=== PATIENT | male | born 1995 | race Asian ===

== ENCOUNTER 2017-01-28 18:25 | Emergency (ER) | payer OTHER ==
[~2017-01-28] VITALS: Ht 162.6 cm; Wt 78.0 kg
[~2017-01-28 18:25] MED LIST: ALBU90AE13 INH; AMOX875T8 PO; CEFTRIAXONE250 MG IJ; DOXYCYCL HYC100 M1 PO; DOXYCYCLINE PO; LORA10TA3 PO; MEDROL DOSEPAK4 MG PO
[2017-01-28 18:54] VITALS: BP 109/70; TEMP 98.6
== END 2017-01-28 19:15 | disposition home or self-care (01) ==
LOC: ED 18:25
DX: R11.2 Nausea with vomiting, unspecified (principal); R19.7 Diarrhea, unspecified
CPT/HCPCS: 99281

== ENCOUNTER 2017-03-15 11:05 | Emergency (ER) | payer OTHER ==
[~2017-03-15] VITALS: Ht 165.1 cm; Wt 81.6 kg
[2017-03-15 11:40] VITALS: BP 162/84; TEMP 98.3
== END 2017-03-15 11:43 | disposition home or self-care (01) ==
LOC: ED 11:05
DX: K08.89 Other specified disorders of teeth and supporting structures (principal)
CPT/HCPCS: 99282

== ENCOUNTER 2017-04-30 08:49 | Emergency (ER) | payer OTHER ==
[~2017-04-30] VITALS: Ht 165.1 cm; Wt 81.6 kg
[2017-04-30 08:58] VITALS: BP 119/71; TEMP 97.8
== END 2017-04-30 09:25 | disposition home or self-care (01) ==
LOC: ED 08:49
DX: Z48.02 Encounter for removal of sutures (principal)

== ENCOUNTER 2017-05-14 13:23 | Emergency (ER) | payer OTHER ==
[~2017-05-14] VITALS: Ht 165.1 cm; Wt 81.6 kg
[2017-05-14 13:30] VITALS: BP 115/70; TEMP 97.7
== END 2017-05-14 15:08 | disposition home or self-care (01) ==
LOC: ED 13:23
DX: N48.89 Other specified disorders of penis (principal)
CPT/HCPCS: 81000; 99282

== ENCOUNTER 2017-05-20 09:39 | Emergency (ER) | payer OTHER ==
[~2017-05-20] VITALS: Ht 165.1 cm; Wt 81.6 kg
[2017-05-20 09:48] VITALS: BP 151/78; TEMP 98.3
== END 2017-05-20 10:00 | disposition home or self-care (01) ==
LOC: ED 09:39
DX: R30.0 Dysuria (principal)

== ENCOUNTER 2017-10-07 08:26 | Emergency (ER) | payer OTHER ==
[~2017-10-07] VITALS: Ht 165.1 cm; Wt 81.6 kg
[2017-10-07 08:40] VITALS: TEMP 98.6
[2017-10-07 09:36] LABS: PLATELET COUNT 202 K/uL (142-355)
[2017-10-07 09:50] LABS: POTASSIUM 2.9 mmol/L (3.6-5.2)
[2017-10-07 11:35] VITALS: BP 120/80
== END 2017-10-07 11:35 | disposition home or self-care (01) ==
LOC: ED 08:26
DX: K52.9 Noninfective gastroenteritis and colitis, unspecified (principal)
CPT/HCPCS: 36415; 74022; 80053; 82150; 83690; 83735; 85027; 96360; 96361; 99284; J2405

== ENCOUNTER 2018-10-11 07:28 | Emergency (ER) | payer OTHER ==
[~2018-10-11] VITALS: Ht 162.6 cm; Wt 75.3 kg
[2018-10-11 07:33] VITALS: TEMP 97.9
[2018-10-11 08:50] VITALS: BP 118/62
== END 2018-10-11 08:50 | disposition home or self-care (01) ==
LOC: ED 07:28
DX: N34.2 Other urethritis (principal)
CPT/HCPCS: 81000; 87086; 87088; 87490; 87590; 96372; 99283; J0696

== ENCOUNTER 2019-01-15 12:48 | Emergency (ER) | payer OTHER ==
[~2019-01-15] VITALS: Ht 162.6 cm; Wt 75.3 kg
[2019-01-15 13:00] VITALS: TEMP 99.1
[2019-01-15 14:20] VITALS: BP 114/68
== END 2019-01-15 14:22 | disposition home or self-care (01) ==
LOC: ED 12:48
DX: L08.9 Local infection of the skin and subcutaneous tissue, unspecified (principal)
CPT/HCPCS: 87070; 87077; 87185; 87186; 87205; 96372; 99283; J0696

== ENCOUNTER 2019-02-21 09:41 | Emergency (ER) | payer OTHER ==
[~2019-02-21] VITALS: Ht 162.6 cm; Wt 79.8 kg
[2019-02-21 10:01] VITALS: TEMP 99.1
[2019-02-21 12:06] VITALS: BP 114/68
== END 2019-02-21 12:07 | disposition home or self-care (01) ==
LOC: ED 09:41
DX: J06.9 Acute upper respiratory infection, unspecified (principal); R05 Cough
CPT/HCPCS: 87502; 87651; 99283

== ENCOUNTER 2019-12-02 16:37 | Emergency (ER) | payer OTHER ==
[~2019-12-02] VITALS: Ht 160 cm; Wt 78.9 kg
[2019-12-02 19:18] LABS: POTASSIUM 3.9 mmol/L (3.6-5.2)
[2019-12-02 19:26] LABS: PLATELET COUNT 241 K/uL (142-355)
[2019-12-02 20:03] VITALS: BP 102/69; TEMP 98.9
== END 2019-12-02 20:03 | disposition home or self-care (01) ==
LOC: ED 16:37
PROVIDERS: Family Medicine
DX: N39.0 Urinary tract infection, site not specified (principal)
CPT/HCPCS: 36415; 80053; 81000; 85027; 87086; 87088; 96372; 99283; J0696

== ENCOUNTER 2020-10-18 07:01 | Emergency (ER) | payer OTHER ==
[2020-10-31 07:03] LABS: PLATELET COUNT 264 K/uL (142-355)
== END 2020-10-18 12:00 | disposition home or self-care (01) ==
LOC: ED 07:01
PROVIDERS: Hospitalist
DX: R10.13 Epigastric pain (principal); K85.80 Other acute pancreatitis without necrosis or infection; Z87.898 Personal history of other specified conditions; B96.81 Helicobacter pylori [H. pylori] as the cause of diseases classified elsewhere
CPT/HCPCS: 36415; 80053; 80307; 80320; 81000; 82150; 83690; 85027; 86318; 96360; 96361; 96375; 99284; Q9963

== ENCOUNTER 2020-11-18 12:27 | Emergency (ER) | payer OTHER ==
[~2020-11-18] VITALS: Ht 162.6 cm; Wt 80.7 kg
[2020-11-18 12:30] VITALS: TEMP 98
[2020-11-18 14:40] VITALS: BP 112/68
== END 2020-11-18 14:40 | disposition home or self-care (01) ==
LOC: ED 12:27
DX: M54.6 Pain in thoracic spine (principal); D17.1 Benign lipomatous neoplasm of skin and subcutaneous tissue of trunk
CPT/HCPCS: 96372; 99283; J1885

== ENCOUNTER 2020-12-17 11:08 | Emergency (ER) | payer OTHER ==
[~2020-12-17] VITALS: Ht 162.6 cm; Wt 80.7 kg
[2020-12-17 13:21] LABS: PLATELET COUNT 293 K/uL (142-355)
[2020-12-17 13:28] LABS: POTASSIUM 3.8 mmol/L (3.6-5.2)
[2020-12-17 13:45] VITALS: BP 103/60
== END 2020-12-17 13:45 | disposition home or self-care (01) ==
LOC: ED 11:08
PROVIDERS: Hospitalist
DX: R07.89 Other chest pain (principal); J18.9 Pneumonia, unspecified organism; Z20.822 Contact with and (suspected) exposure to COVID-19; F17.210 Nicotine dependence, cigarettes, uncomplicated
CPT/HCPCS: 80048; 85027; 87635; 96372; 99283; J0696; J1885; U0003

== ENCOUNTER 2020-12-20 06:29 | Emergency (ER) | payer OTHER ==
[~2020-12-20] VITALS: Ht 162.6 cm; Wt 70.3 kg
[2020-12-20 06:33] VITALS: BP 127/80; TEMP 98
[2020-12-20 06:59] LABS: PLATELET COUNT 268 K/uL (142-355)
[2020-12-20 07:00] LABS: POTASSIUM 3.6 mmol/L (3.6-5.2)
== END 2020-12-20 10:56 | disposition home or self-care (01) ==
LOC: ED 06:29
PROVIDERS: Hospitalist
DX: R10.13 Epigastric pain (principal); K29.70 Gastritis, unspecified, without bleeding
CPT/HCPCS: 36415; 80053; 80320; 83690; 85027; 96360; 96375; 99284; J1885; J2405; Q9963

== ENCOUNTER 2020-12-31 13:11 | Emergency (ER) | payer OTHER ==
[~2020-12-31] VITALS: Ht 162.6 cm; Wt 77.1 kg
[2020-12-31 13:21] VITALS: TEMP 98.6
[2020-12-31 15:50] VITALS: BP 110/75
== END 2020-12-31 15:50 | disposition home or self-care (01) ==
LOC: ED 13:11
DX: J06.9 Acute upper respiratory infection, unspecified (principal); Z20.822 Contact with and (suspected) exposure to COVID-19
CPT/HCPCS: 87635; 99283; U0003

== ENCOUNTER 2021-02-08 23:29 | Emergency (ER) | payer OTHER ==
[~2021-02-08] VITALS: Ht 162.6 cm; Wt 77.1 kg
[2021-02-09 00:50] LABS: PLATELET COUNT 317 K/uL (142-355)
[2021-02-09 01:50] VITALS: BP 111/52; TEMP 98.5
== END 2021-02-09 01:50 | disposition home or self-care (01) ==
LOC: ED 23:29
PROVIDERS: Hospitalist
DX: N45.1 Epididymitis (principal)
CPT/HCPCS: 36415; 80053; 81000; 85027; 96372; 99283; J0696; J1885

== ENCOUNTER 2021-05-02 15:58 | Emergency (ER) | payer OTHER ==
[~2021-05-02] VITALS: Ht 162.6 cm; Wt 68.0 kg
[2021-05-02 17:35] VITALS: BP 112/71; TEMP 98
== END 2021-05-02 17:35 | disposition home or self-care (01) ==
LOC: ED 15:58
DX: A64 Unspecified sexually transmitted disease (principal)
CPT/HCPCS: 81000; 87088; 87490; 87590; 96372; 99283; J0696

== ENCOUNTER 2021-05-30 07:51 | Emergency (ER) | payer OTHER ==
[~2021-05-30] VITALS: Ht 162.6 cm; Wt 68.0 kg
[2021-05-30 08:00] VITALS: TEMP 98.9
[2021-05-30 08:35] LABS: PLATELET COUNT 259 K/uL (142-355)
[2021-05-30 08:42] LABS: POTASSIUM 3.9 mmol/L (3.6-5.2)
[2021-05-30 10:38] VITALS: BP 123/74
== END 2021-05-30 10:38 | disposition home or self-care (01) ==
LOC: ED 07:51
PROVIDERS: Hospitalist
DX: N13.2 Hydronephrosis with renal and ureteral calculous obstruction (principal)
CPT/HCPCS: 36415; 80053; 81000; 83690; 85027; 96360; 96365; 96375; 99284; J0696; J1885; J2270; J2405

== ENCOUNTER 2021-12-21 21:09 | Emergency (ER) | payer OTHER ==
[~2021-12-21] VITALS: Ht 162.6 cm; Wt 61.7 kg
[2021-12-21 21:15] VITALS: TEMP 98.3
[2021-12-21 22:45] LABS: PLATELET COUNT 299 K/uL (142-355)
[2021-12-21 23:50] VITALS: BP 110/62
== END 2021-12-21 23:50 | disposition home or self-care (01) ==
LOC: ED 21:09
PROVIDERS: Emergency Medicine Emergency Medical Services
DX: N20.1 Calculus of ureter (principal); Z87.442 Personal history of urinary calculi
CPT/HCPCS: 36415; 80053; 80307; 80320; 81000; 82150; 83690; 85027; 96360; 96374; 96375; 99284; J1885; J2405; J3490

== ENCOUNTER 2022-04-06 21:01 | Emergency (ER) | payer OTHER ==
[~2022-04-06] VITALS: Ht 162.6 cm; Wt 72.6 kg
[2022-04-06 21:05] VITALS: BP 114/65; TEMP 98.8
== END 2022-04-06 22:27 | disposition home or self-care (01) ==
LOC: ED 21:01
DX: A63.8 Other specified predominantly sexually transmitted diseases (principal); A54.9 Gonococcal infection, unspecified
CPT/HCPCS: 81000; 87490; 87590; 96372; 99283; J0696

== ENCOUNTER 2022-05-07 18:30 | Emergency (ER) | payer OTHER ==
[~2022-05-07] VITALS: Ht 162.6 cm; Wt 72.6 kg
[2022-05-07 20:15] VITALS: BP 118/67; TEMP 98.9
== END 2022-05-07 20:15 | disposition home or self-care (01) ==
LOC: ED 18:30
DX: A54.89 Other gonococcal infections (principal); A74.89 Other chlamydial diseases; J40 Bronchitis, not specified as acute or chronic; I88.8 Other nonspecific lymphadenitis
CPT/HCPCS: 81000; 87490; 87590; 96372; 99283; J0696

== ENCOUNTER 2022-06-17 12:16 | Emergency (ER) | payer OTHER ==
[~2022-06-17] VITALS: Ht 162.6 cm; Wt 61.7 kg
[2022-06-17 13:28] LABS: PLATELET COUNT 278 K/uL (142-355)
[2022-06-17 13:32] LABS: POTASSIUM 4.1 mmol/L (3.6-5.2)
[2022-06-17 17:46] VITALS: BP 116/89; TEMP 98.5
== END 2022-06-17 17:46 | disposition home or self-care (01) ==
LOC: ED 12:16
PROVIDERS: Family Medicine
DX: J98.4 Other disorders of lung (principal); N20.0 Calculus of kidney; R11.2 Nausea with vomiting, unspecified
CPT/HCPCS: 36415; 80053; 80307; 81000; 82150; 83690; 85027; 99284; J1885; J2405; Q9963

== ENCOUNTER 2022-10-27 15:20 | Emergency (ER) | payer OTHER ==
[~2022-10-27] VITALS: Ht 162.6 cm; Wt 65.8 kg
[2022-10-27 15:40] VITALS: BP 127/77; TEMP 99.7
== END 2022-10-27 18:00 | disposition home or self-care (01) ==
LOC: ED 15:20
DX: K02.9 Dental caries, unspecified (principal)
CPT/HCPCS: 99282

== ENCOUNTER 2022-12-13 09:24 | Emergency (ER) | payer OTHER ==
[~2022-12-13] VITALS: Ht 162.6 cm; Wt 72.6 kg
[2022-12-13 10:00] LABS: PLATELET COUNT 290 K/uL (142-355)
[2022-12-13 11:30] VITALS: BP 118/79; TEMP 98.5
== END 2022-12-13 11:30 | disposition left against medical advice (07) ==
LOC: ED 09:24
PROVIDERS: Family Medicine
DX: E83.52 Hypercalcemia (principal); K80.20 Calculus of gallbladder without cholecystitis without obstruction; E86.0 Dehydration; N20.0 Calculus of kidney
CPT/HCPCS: 36415; 80053; 81000; 83690; 85027; 96361; 96374; 96375; 99284; J1885; J2405; Q9963